=== PATIENT | female | born 1960 | race Caucasian/White ===

== ENCOUNTER → 2019-10-17 14:03 | Outpatient (CLI) | payer OTHER, SELFPAY ==
--- NOTE | 2019-10-17 | DI.RAD.S_ITS ---
PROCEDURE: XR SHOULDER RT MIN 2V INDICATIONS: RIGHT SHOULDER PAIN TECHNIQUE: 3 views of the shoulder were acquired. COMPARISON: None. FINDINGS: Bones: No fractures, however there is superior subluxation of the lateral clavicle relative to the acromion measuring one half shaft width. Possible AC joint space widening measuring 9 mm No suspicious bony lesions. Visualized ribs appear intact. Soft tissues: No suspicious soft tissue calcifications. IMPRESSION: Findings consistent with age-indeterminate AC separation, which could be confirmed with dedicated acromioclavicular radiographs with and without weights, and correlation to point tenderness No fracture Dictated by: Antwon Cervantes M.D. on 10/17/2019 at 14:39 Approved by: Antwon Cervantes M.D. on 10/17/2019 at 14:41
== END ==
PROVIDERS: Family Provider Family Medicine; PCP Family Medicine; Visit Provider Family Medicine
DX: M25.511 Pain in right shoulder (principal)
CPT/HCPCS: 73030

== ENCOUNTER 2019-12-21 19:50 | Emergency (ER) | payer OTHER, SELFPAY ==
[2019-12-21 19:55] VITALS: BP 149/89; PULSE 73; RESP 29; TEMP 36.7; O2SAT 73; BMI 27.6
--- NOTE | 2019-12-21 20:06 | DI.RAD.S_ITS ---
PROCEDURE: XR CHEST 1V INDICATIONS: chest pain TECHNIQUE: One view of the chest was acquired. COMPARISON: [facility], , CHEST 1 VIEW, 03/01/2011, 22:02. FINDINGS: Surgical changes and devices: None. Lungs and pleura: Lungs are clear. No pleural effusions or pneumothorax. Mediastinum: Mediastinal contours appear normal. Heart size is normal. Bones and chest wall: No suspicious bony lesions. Overlying soft tissues appear unremarkable. IMPRESSION: No acute process. Dictated by: Wilmar Prasad M.D. on 12/21/2019 at 20:55 Approved by: Wilmar Prasad M.D. on 12/21/2019 at 20:55
[2019-12-21 20:16] LABS: Add Manual Diff / Slide Review NO; Basophils Absolute Auto 100 /uL (0-100); Basophils Percent Auto 0.8 % (0-2); Eosinophils Absolute Auto 200 /uL (0-450); Eosinophils Percent Auto 3.2 % (2-4); Hematocrit 40.8 % (36-46); Hemoglobin 13.8 g/dL (12.0-16.0); Lymphocytes Absolute Auto 2700 /uL (1100-4500); Lymphocytes Percent Auto 40.9 % (25-40); Mean Corpuscular HGB Conc 33.9 % (30-36); Mean Corpuscular Hemoglobin 32.4 PG (26-34); Mean Corpuscular Volume 95.5 fL (80-100); Monocytes Absolute Auto 500 /uL (0-900); Monocytes Percent Auto 8.3 % (3-14); Neutrophils Absolute Auto 3100 /uL (1500-7000); Neutrophils Percent Auto 46.8 % (50-75); Platelet Count 188 X10^3/uL (150-400); Red Blood Cell Count 4.27 X10^6/uL (4.0-5.2); Red Cell Distribution Width 13.5 % (11.6-14.8); White Blood Cell Count 6.6 X10^3/uL (4.5-11.0)
[2019-12-21 20:18] LABS: Prothrombin Time 11.7 SECONDS (10.1-12.7)
[2019-12-21 20:20] LABS: PTT Partial Thromboplastin Tim 26 SECONDS (26.4-36.2)
[2019-12-21 20:25] LABS: Alanine Aminotransferase 52 IU/L (<35); Albumin 4.1 g/dL (3.5-5.0); Albumin Globulin Ratio 1.5 (1.0-2.8); Alkaline Phosphatase 44 U/L (38-126); Amylase 111 U/L (30-110); Aspartate Aminotransferase 80 IU/L (14-36); BUN Creatinine Ratio 31.4 (6-22); Bilirubin Total 0.4 mg/dL (0.2-1.3); Blood Urea Nitrogen 22 mg/dL (7-17); Calcium 9.2 mg/dL (8.4-10.2); Carbon Dioxide 21 mmol/L (22-32); Chloride 108 mmol/L (98-107); Creatine Kinase 67 U/L (30-135); Estimated Glomerular Filt Rate > 60.0 mL/min (>60); Globulin 2.8 g/dL (1.7-4.1); Glucose 102 mg/dL (70-100); HEMOLYSIS 25 (0-50); Lipase 142 U/L (23-300); Potassium 3.7 mmol/L (3.4-5.1); Sodium 140 mmol/L (137-145); Total Protein 6.9 g/dL (6.3-8.2)
[2019-12-21 20:30] VITALS: BP 129/78; PULSE 68; RESP 13; O2SAT 97
[2019-12-21 20:35] LABS: Troponin I < 0.012 ng/mL (0.01-0.034)
[2019-12-21 21:00] VITALS: BP 124/74; PULSE 70; RESP 15; O2SAT 95
--- NOTE | 2019-12-21 21:04 | ED_ITS ---
HPI - Chest Pain General Chief Complaint: Chest Pain Stated Complaint: chest pain Time Seen by Provider: 12/21/19 19:55 Source: patient Mode of arrival: Family Vehicle Limitations: no limitations History of Present Illness HPI narrative: 59-year-old female nonsmoker with history of gallbladder disease presents with a chief complaint of a sudden onset mid back and epigastric pain that started at about 8:00 p.m. tonight. She denies provocation or palliation and states it was most intense at its onset but is still probably a 5/10. It is worse when she moves and with palpation. She denies any vomiting or diarrhea but does feel little bit nauseated. She is not dizzy nor weak or lightheaded. She denies any shortness of breath or palpitations. MD complaint: chest pain Onset (ago): hour(s) Duration: constant and improved Onset: during rest Pain location: epigastric Severity: moderate Quality: sharp Pain radiation: back Relieving factors: movement Associated symptoms: nausea Treatments prior to arrival chest pain: none Related Data On Oral Contraceptives: No Previous Rx's Medication Instructions Recorded hydrocodone-acetaminophen 1 tab PO Q4-6H PRN #10 tab 12/22/19 ondansetron 4 mg PO TID-QID PRN #10 tab 12/22/19 Allergies Allergy/AdvReac Type Severity Reaction Status Date / Time amoxicillin [AMOXICILLIN] Allergy Unknown Verified 12/22/19 01:03 erythromycin base Allergy Unknown Verified 12/22/19 01:03 [ERYTHROMYCIN BASE] Review of Systems Constitutional Constitutional: Denies chills, Denies fatigue, Denies fever(s), Denies frequent falls, Denies lethargy and Denies weakness Eyes Eyes: Denies change in vision, Denies eye discharge, Denies irritation and Denies loss of vision ENT Ears, Nose, Mouth, and Throat: Denies change in voice, Denies dizziness, Denies neck pain, Denies sore throat and Denies throat swelling Cardiovascular Cardiovascular: Denies chest pain, Denies irregular heart rhythm, Denies lightheadedness, Denies palpitations, Denies dyspnea, Denies dyspnea on exertion and Denies orthopnea Respiratory Respiratory: Denies cough, Denies dyspnea, Denies dyspnea on exertion and Denies wheezing Gastrointestinal Gastrointestinal: Reports abdominal pain, Denies change in bowel habits, Denies diarrhea, Reports nausea and Denies vomiting Genitourinary Genitourinary: Denies hematuria, Denies flank pain, Denies urinary incontinence and Denies urinary urgency Musculoskeletal Musculoskeletal: Denies back pain, Denies muscle weakness, Denies neck pain, Denies numbness and Denies tingling Integumentary/Breasts Skin/Breast: Denies pruritus, Denies erythema, Denies rash and Denies wounds Neurologic Neurologic: Denies behavioral changes, Denies confusion, Denies dizziness, Denies frequent falls, Denies loss of vision, Denies numbness, Denies tingling and Denies weakness Psychiatric Psychiatric: Denies anxiety, Denies behavioral changes, Denies confusion, Denies depression, Denies homicidal ideation and Denies suicidal ideation Endocrine Endocrine: Denies fatigue, Denies flushing and Denies palpitations Hematologic/Lymphatic Hematologic/Lymphatic: Denies easy bruising Allergic/Immunologic Allergic/Immunologic: Denies urticaria, Denies throat swelling and Denies wheezing Patient History Surgical History History of third molar tooth extraction Status post delivery (05/30/85) Status post delivery (05/23/88) Status post delivery (09/23/89) Status post surgery (01/18/16) Social History Smoking Status: Never smoker Smoking Status: Never smoker alcohol intake frequency: a few times a week Substance Use Type: does not use Exam Narrative Exam Narrative: GENERAL: [59] year old patient appears stated age. Well- nourished, well-developed patient, in mild distress. HEAD: Atraumatic. Normocephalic. EYES: Pupils equal round and reactive. Extraocular motions intact. No scleral icterus. No injection or drainage. ENT: Nose without bleeding, purulent drainage. Throat without erythema, tonsillar hypertrophy or exudate. Airway patent. NECK: Trachea midline. Non tender CARDIOVASCULAR: Regular rate and rhythm without murmurs, gallops, or rubs. RESPIRATORY: Clear to auscultation. Breath sounds equal bilaterally. No wheezes, rales, or rhonchi. GASTROINTESTINAL: Abdomen soft, tender to palpation in the epigastric region , nondistended. EXTREMITIES: No edema or joint tenderness. BACK: Nontender without deformity or crepitance. No flank tenderness. NEURO: AOx3. SKIN: No rash or erythema of visible areas Initial Vital Signs Initial Vital Signs: Vital Signs Temperature 98.0 F 12/21/19 19:55 Pulse Rate 73 12/21/19 19:55 Respiratory Rate 29 H 12/21/19 19:55 Blood Pressure 149/89 H 12/21/19 19:55 Pulse Oximetry 73 L 12/21/19 19:55 Course Orders Ordered: ED Orders 12/21/19 19:55 EKG-12 Lead Routine EKG-12 Lead Stat 12/21/19 20:00 Amylase Stat Complete Blood Count AUTO DIFF Stat Comprehensive Metabolic Panel Stat D Dimer Stat Lipase Stat Partial Thromboplastin Time Stat Prothrombin Time INR Stat Troponin & CK Cardiac Panel Stat 12/21/19 20:06 XR chest 1V Stat 12/21/19 21:54 CT abdomen pelvis w con Stat Discontinued Medications Hydrocodone Bitart/Acetaminophen (Vicodin 5/325 Prepack) 1 bottle MISC SEEINSTR ONE Stop: 12/22/19 00:21 Last Admin: 12/22/19 00:56 Dose: 1 bottle Documented by: MUNDO Hydromorphone HCl (Dilaudid) 0.5 mg IV NOW ONE Stop: 12/21/19 23:45 Last Admin: 12/21/19 23:55 Dose: 0.5 mg Documented by: NASRAL Ondansetron HCl (Zofran Odt Prepack) 1 bottle MISC SEEINSTR ONE Stop: 12/22/19 00:23 Last Admin: 12/22/19 00:56 Dose: 1 bottle Documented by: MUNDO Vital Signs Vital signs: Vital Signs - 8 hr 12/21/19 19:55 12/21/19 20:30 12/21/19 21:00 Temperature 98.0 F Pulse Rate 73 68 70 Respiratory Rate 29 H 13 15 Blood Pressure 149/89 H Blood Pressure [Right Arm] 129/78 124/74 Pulse Oximetry 73 L 97 95 12/21/19 21:30 12/21/19 22:00 12/21/19 23:04 Temperature Pulse Rate 73 101 H 71 Respiratory Rate 21 16 19 Blood Pressure Blood Pressure [Right Arm] 132/68 139/74 125/73 Pulse Oximetry 96 97 97 12/22/19 00:14 12/22/19 00:55 12/22/19 01:04 Temperature Pulse Rate 77 60 71 Respiratory Rate 15 11 L 15 Blood Pressure 131/70 Blood Pressure [Right Arm] 122/62 131/70 Pulse Oximetry 96 93 96 MDM - Chest Pain Lab Data Result diagrams: 12/21/19 20:00 12/21/19 20:00 Labs: Lab Results 12/21/19 12/21/19 12/21/19 Range/Units 20:00 20:00 20:00 WBC 6.6 (4.5-11.0) X10^3/uL RBC 4.27 (4.0-5.2) X10^6/uL Hgb 13.8 (12.0-16.0) g/dL Hct 40.8 (36-46) % MCV 95.5 (80-100) fL MCH 32.4 (26-34) PG MCHC 33.9 (30-36) % RDW 13.5 (11.6-14.8) % Plt Count 188 (150-400) X10^3/uL Neut % (Auto) 46.8 L (50-75) % Lymph % (Auto) 40.9 H (25-40) % [place] % (Auto) 8.3 (3-14) % Eos % (Auto) 3.2 (2-4) % Baso % (Auto) 0.8 (0-2) % Neut # (Auto) 3100 (7757-6118) /uL Lymph # (Auto) 2700 (6847-9944) /uL [place] # (Auto) 500 (0-900) /uL Eos # (Auto) 200 (0-450) /uL Baso # (Auto) 100 (0-100) /uL PT 11.7 (10.1-12.7) SECONDS INR 1.0 (0.9-1.3) APTT 26 L (26.4-36.2) SECONDS D-Dimer (<230) ng/mL Sodium 140 (137-145) mmol/L Potassium 3.7 (3.4-5.1) mmol/L Chloride 108 H (98-107) mmol/L Carbon Dioxide 21 L (22-32) mmol/L BUN 22 H (7-17) mg/dL Creatinine 0.70 (0.52-1.04) mg/dL Estimated GFR > 60.0 (>60) mL/min BUN/Creatinine Ratio 31.4 H (6-22) Glucose 102 H (70-100) mg/dL Calcium 9.2 (8.4-10.2) mg/dL Total Bilirubin 0.4 (0.2-1.3) mg/dL AST 80 H (14-36) IU/L ALT 52 H (<35) IU/L Alkaline Phosphatase 44 (38-126) U/L Total Creatine Kinase 67 (30-135) U/L CK-MB (CK-2) TNP CK-MB (CK-2) Rel Index TNP Troponin I < 0.012 (0.01-0.034) ng/mL Total Protein 6.9 (6.3-8.2) g/dL Albumin 4.1 (3.5-5.0) g/dL Globulin 2.8 (1.7-4.1) g/dL Albumin/Globulin Ratio 1.5 (1.0-2.8) Amylase (30-110) U/L Lipase 142 (23-300) U/L 12/21/19 12/21/19 Range/Units 20:00 20:00 WBC (4.5-11.0) X10^3/uL RBC (4.0-5.2) X10^6/uL Hgb (12.0-16.0) g/dL Hct (36-46) % MCV (80-100) fL MCH (26-34) PG MCHC (30-36) % RDW (11.6-14.8) % Plt Count (150-400) X10^3/uL Neut % (Auto) (50-75) % Lymph % (Auto) (25-40) % [place] % (Auto) (3-14) % Eos % (Auto) (2-4) % Baso % (Auto) (0-2) % Neut # (Auto) (6456-7939) /uL Lymph # (Auto) (9080-3624) /uL [place] # (Auto) (0-900) /uL Eos # (Auto) (0-450) /uL Baso # (Auto) (0-100) /uL PT (10.1-12.7) SECONDS INR (0.9-1.3) APTT (26.4-36.2) SECONDS D-Dimer < 200 (<230) ng/mL Sodium (137-145) mmol/L Potassium (3.4-5.1) mmol/L Chloride (98-107) mmol/L Carbon Dioxide (22-32) mmol/L BUN (7-17) mg/dL Creatinine (0.52-1.04) mg/dL Estimated GFR (>60) mL/min BUN/Creatinine Ratio (6-22) Glucose (70-100) mg/dL Calcium (8.4-10.2) mg/dL Total Bilirubin (0.2-1.3) mg/dL AST (14-36) IU/L ALT (<35) IU/L Alkaline Phosphatase (38-126) U/L Total Creatine Kinase (30-135) U/L CK-MB (CK-2) CK-MB (CK-2) Rel Index Troponin I (0.01-0.034) ng/mL Total Protein (6.3-8.2) g/dL Albumin (3.5-5.0) g/dL Globulin (1.7-4.1) g/dL Albumin/Globulin Ratio (1.0-2.8) Amylase 111 H (30-110) U/L Lipase (23-300) U/L Imaging Data Chest x-ray: Radiologist's Impression: [address] [address] XRay Report Signed Patient: Ofelia Larkin [facility]#: [id number] : 2Acct:[id number] Age/Sex: 59 / FDate of Service: 12/21/19 Loc: ED Accession Number: [id number] Procedure: XR chest 1V Ordering Provider: Geronimo Abdul D.O. PROCEDURE: XR CHEST 1V INDICATIONS: chest pain TECHNIQUE: One view of the chest was acquired. COMPARISON: [facility], , CHEST 1 VIEW, 03/01/2011, 22:02. FINDINGS: Surgical changes and devices: None. Lungs and pleura: Lungs are clear. No pleural effusions or pneumothorax. Mediastinum: Mediastinal contours appear normal. Heart size is normal. Bones and chest wall: No suspicious bony lesions. Overlying soft tissues appear unremarkable. IMPRESSION: No acute process. Dictated by: Wilmar Prasad M.D. on 12/21/2019 at 20:55 Approved by: Wilmar Prasad M.D. on 12/21/2019 at 20:55 CT scan - abdomen/pelvis: Radiologist's Impression: Normal appendix, no diverticulitis or bowel obstruction large amount of stool MDM Narrative Medical decision making narrative: Multiple etiologies for patient's symptoms considered including: [Bowel obstruction versus pancreatitis versus colitis versus other] Patient's symptoms improved or duration of stay with above-stated therapies. Findings and discharge diagnosis discussed with patient/family followed by verbalization of understanding Return precautions discussed with patient/family whom verbalize understanding. Discharge Plan Departure Patient Disposition: Home Clinical Impression: Abdominal pain, acute, epigastric Discharge Date/Time: 12/22/19 01:06 Instructions: DI for Abdominal Pain-Adult Activity Restrictions/Additional Instructions: *You have been diagnosed with [epigastric pain ] *What to do: *Take medications as directed *Follow up with your primary care provider in 2-3 days, call for an appointment. Let them know you were seen in the Emergency Department and that we ask that you be seen in follow up *Return to ER if you should have any new, worsening or concerning symptoms 1. Drink plenty of fluids with frequent small sips. 2. For the next 24 hours a clear liquid diet is advised. After that please employ a brat diet which would include bananas, rice, apples, toast. 3. Please take medications as directed. 4. Please follow-up with your doctor in the next 1-2 days. Call the office for an appointment. 5. Please return to the emergency Department for any worsening or persistent symptoms, such as increasing pain or fever. Prescriptions: New hydrocodone-acetaminophen 5-325 mg tablet 1 tab PO Q4-6H PRN (Reason: pain) Qty: 10 RF: 0 ondansetron 4 mg tablet,disintegrating 4 mg PO TID-QID PRN (Reason: nausea and vomiting) Qty: 10 RF: 0 Referrals: Abida Moctezuma MD [Primary Care Provider] -
[2019-12-21 21:18] LABS: D Dimer < 200 ng/mL (<230)
[2019-12-21 21:30] VITALS: BP 132/68; PULSE 73; RESP 21; O2SAT 96
--- NOTE | 2019-12-21 21:54 | DI.CT.S_ITS ---
PROCEDURE: CT ABDOMEN PELVIS W CON INDICATIONS: severe abdominal pain TECHNIQUE: After the administration of intravenous contrast, 5 mm thick sections acquired from the diaphragm to the symphysis. 5 mm coronal and sagittal reformats were acquired. For radiation dose reduction, the following was used: automated exposure control, adjustment of mA and/or kV according to patient size. COMPARISON: None. FINDINGS: Image quality: Excellent. ABDOMEN: Lung bases: Lung bases are clear. Heart size is normal. Solid organs: Liver is normal in size and enhancement. Gallbladder is surgically absent. Biliary system is non dilated. Pancreas enhances normally. Spleen is normal in size and enhancement. No adrenal nodules. Kidneys demonstrate normal size and enhancement, without hydronephrosis. Peritoneum and bowel: Bowel loops demonstrate normal wall thickness and caliber. No free fluid or air. Moderately large fecal debris. Scattered sigmoid diverticuli with no evidence of diverticulitis. Normal appendix. Nodes and vessels: No retroperitoneal or mesenteric adenopathy by size criteria. Aorta and inferior vena cava are normal in size. Miscellaneous: No ventral hernias. PELVIS: Genitourinary: Bladder wall thickness is normal. Miscellaneous: No inguinal hernias or adenopathy. Bones: No suspicious bony lesions. No vertebral body compression fractures. IMPRESSION: 1. Remote cholecystectomy. 2. Normal appendix. 3. Moderately large fecal debris. 4. Scattered sigmoid diverticuli 5. No evidence acute abdominal process. Comment: Final report is concordant with preliminary interpretation provided by [facility]. Dictated by: David Yin M.D. on 12/22/2019 at 7:54 Approved by: David Yin M.D. on 12/22/2019 at 7:57
[2019-12-21 22:00] VITALS: BP 139/74; PULSE 101; RESP 16; O2SAT 97
[2019-12-21 23:04] VITALS: BP 125/73; PULSE 71; RESP 19; O2SAT 97
[2019-12-21] MEDS: HYDROMORPHONE 0.5 MG INJ IV (23:55)
[2019-12-22 00:14] VITALS: BP 122/62; PULSE 77; RESP 15; O2SAT 96
[2019-12-22 00:55] VITALS: BP 131/70; PULSE 60; RESP 11; O2SAT 93
[2019-12-22] MEDS: ONDANSETRON 4 MG ODT PREPACK 1 BOTTLE MISC (00:56)
[2019-12-22] MEDS: HYDROCODONE/ACET 5/325 PREPACK 1 BOTTLE MISC (00:56)
[2019-12-22 01:04] VITALS: BP 131/70; PULSE 71; RESP 15; O2SAT 96
== END 2019-12-22 01:06 | disposition home or self-care (01) ==
PROVIDERS: Emergency Provider Emergency Medicine; Family Provider Family Medicine; PCP Family Medicine
DX: R10.13 Epigastric pain (principal); R07.89 Other chest pain
CPT/HCPCS: 36415; 71045; 74177; 80053; 82150; 82550; 83690; 84484; 85025; 85379; 85610; 85730; 93005; 96374; 99284; 99285; J1170; Q9967

== ENCOUNTER 2020-01-04 07:30 | Outpatient (RCR) | payer OTHER, SELFPAY ==
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
--- NOTE | 2019-11-21 16:05 | PT.OPPOC ---
Physical, Occupational & Speech Therapy At [facility] Current Diagnoses Other synovitis and tenosynovitis, unspecified shoulder (11/21/19) Impingement syndrome of right shoulder (11/21/19) Visit Care Team Role Provider Type Abida Moctezuma MD Attending Provider Physician Family Provider Primary Care Provider Specialty: Family Practice Address: [address] [place] [address], [facility] Email: [email or web address] Plan Of Care PT-OP-T Assessment and Plan Start: 11/21/19 12:02 Freq: Status: Active Protocol: Document 11/21/19 09:00 EG (Rec: 11/21/19 13:31 EG [email or web address]) Physical Therapy Assessment Rehab Potential Rehabilitation Potential Excellent Evaluation Complexity Number of Personal Factors/Comorbidities 1-2 Number of Body Systems Impaired 4 or More Clinical Presentation at Evaluation Stable Impairments Impairments Coordination,Functional Activities,Functional Mobility ,Pain,Posture,ROM,Soft Tissue Mobility,Strength Goals 3 Impairment Lifting overhead Short Term Goal (STG) Patient will lift 10 pounds overhead with both arms using correct form and scapular movement with 2/10 pain in 2-4 weeks. STG Duration 2-4 weeks Penitentiary Goal (LTG) Patient will lift 10# overhead using only R arm with correct form and scapular movement with <1/10 pain in 4-6 weeks. LTG Duration 4-6 weeks 2 Impairment p! with AROM abduction Short Term Goal (STG) Patient will have <2/10 pain off of pain medication moving in to R shoulder abduction when performing activities at home in 2-4 weeks. STG Duration 2-4 weeks Mobile Security Architect Goal (LTG) Patient will have 0/10 pain with R shoulder abduction off of pain medication when performing activities at home and at work in 4-6 weeks. LTG Duration 4-6 weeks 1 Impairment p! with waking Short Term Goal (STG) Patient will sleep through the night and have < 2/10 p! in R shoulder upon waking in the morning in 2-4 weeks. STG Duration 2-4 weeks Penitentiary Goal (LTG) Patient will sleep through the night and have 0/10 p! in R shoulder upon waking in the morning in 4-6 weeks. LTG Duration 4-6 weeks. Assessment Summary Assessment Patient presents with primary impingement of the R shoulder resulting in R biceps tendonitis likely caused by overuse and poor mechanics when performing overhead motions. Patient will benefit from postural training to decrease anterior tilt and protraction of scapula, increasing neuromuscular reeducation of scapulothoracic rhythm with overhead motions, education on postural positions during various ADL's including sleeping position, as well as strengthening of rotator cuff muscles in order to decrease R shoulder impingement when performing overhead motions at home. Physical Therapy Plan Frequency and Duration Frequency of Treatment 1x/Week Duration of Treatment 6 weeks Plan of Care Start Date 11/21/19 Plan of Care End Date 01/02/20 Therapeutic Interventions Therapeutic Interventions Coordination Training,Home Exercise Program,Joint Mobilizations,Manual Therapy, Neuromuscular Re-education, Self-Care/Home Management,Soft Tissue Mobilization,Taping, Therapeutic Activities, Therapeutic Exercises Modalities Cold Pack/Ice Massage,Electric Stimulation,Hot Packs Next Visit Focus/Plan Next Note Type Treatment Note Next Visit Plan Assess how HEP is going as well as sleeping position. Introduce anterior chest stretching, increased rotator cuff musculature strengthening , scapular mobilizations. Update HEP as needed. Plan of Care Dates Plan of Care Start Date 11/21/19 Plan of Care End Date 01/02/20 Electronically Signed by: Susan Weldon, PT 11/21/19 [id number] Please Sign and Return: I have reviewed this Plan of Care and certify that the skilled therapy services above are required to meet the patient?s needs. Physician Signature Date Printed Name and Credentials Clinical Instructor Signature Printed Name and Credentials
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
--- NOTE | 2020-01-04 12:02 | PT.OPPOC ---
Physical, Occupational & Speech Therapy At [facility] Current Diagnoses Other synovitis and tenosynovitis, unspecified shoulder (01/04/20) Impingement syndrome of right shoulder (01/04/20) Visit Care Team Role Provider Type Abida Moctezuma MD Attending Provider Physician Family Provider Primary Care Provider Specialty: Family Practice Address: [address] [place] [address], [facility] Email: [email or web address] Plan Of Care PT-OP-T Assessment and Plan Start: 11/21/19 12:02 Freq: Status: Active Protocol: Document 01/04/20 07:30 EG (Rec: 01/04/20 16:39 EG [id number]) Physical Therapy Assessment Goals 3 Impairment Lifting overhead Short Term Goal (STG) Patient will lift 10 pounds overhead with both arms using correct form and scapular movement with 2/10 pain in 2-4 weeks. STG Duration MET Senior Living Goal (LTG) Patient will lift 10# overhead using only R arm with correct form and scapular movement with <1/10 pain in 4-6 weeks. 01/04/2020: Improved; able to lift 5# overhead with +2 increase in pain LTG Duration 4-6 weeks 2 Impairment p! with AROM abduction Short Term Goal (STG) Patient will have <2/10 pain off of pain medication moving in to R shoulder abduction when performing activities at home in 2-4 weeks. STG Duration MET Spot Man Goal (LTG) Patient will have 0/10 pain with R shoulder abduction off of pain medication when performing activities at home and at work in 4-6 weeks. 01/04/2020: patient still on pain medication. No pain or catch with AROM abduction LTG Duration 4-6 weeks 1 Impairment p! with waking Short Term Goal (STG) Patient will sleep through the night and have < 2/10 p! in R shoulder upon waking in the morning in 2-4 weeks. STG Duration MET Senior Living Goal (LTG) Patient will sleep through the night and have 0/10 p! in R shoulder upon waking in the morning in 4-6 weeks. LTG Duration MET Progress Towards Goals Progress Towards Goals Goals Met Progress Comments Most functional goals met and ready for discharge. Updated comments above. Assessment Summary Assessment Patient tolerated treatment well today and was educated on continual HEP to do while at home. Discharge was today and patient's exercises for home looked good and understanding of continual strengthening was evident. 80% of patient's goals have been met and she is ready to discharge to an independent home program. patient was provided theraband to use to continue with exercises at home. Physical Therapy Plan Frequency and Duration Frequency of Treatment 1x/Week Duration of Treatment 1 week Plan of Care Start Date 01/02/20 Plan of Care End Date 01/09/20 Therapeutic Interventions Therapeutic Interventions Coordination Training,Home Exercise Program,Joint Mobilizations,Manual Therapy, Neuromuscular Re-education, Self-Care/Home Management,Soft Tissue Mobilization,Taping, Therapeutic Activities, Therapeutic Exercises Modalities Cold Pack/Ice Massage,Electric Stimulation,Hot Packs Discharge Physical Therapy Discharge Reasons Goals Met Discharge Comments Patient has been discharged home with independent HEP Plan of Care Dates Plan of Care Start Date 01/02/20 Plan of Care End Date 01/09/20 ISusan DPT, supervised all treatment performed by, and agreed with the plan of care, as performed by Rocio Aranda, DINA. Electronically Signed by: Susan Weldon, PT 01/05/20 1107 Please Sign and Return: I have reviewed this Plan of Care and certify that the skilled therapy services above are required to meet the patient?s needs. Physician Signature Date Printed Name and Credentials Clinical Instructor Signature Printed Name and Credentials
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
== END 2020-01-10 17:36 | disposition home or self-care (01) ==
LOC: PHYS 07:30
PROVIDERS: Family Provider Family Medicine; PCP Family Medicine; Visit Provider Family Medicine
DX: M65.819 Other synovitis and tenosynovitis, unspecified shoulder (principal); M75.41 Impingement syndrome of right shoulder
CPT/HCPCS: 97110; 97140; 97161; 97535

== ENCOUNTER → 2022-04-14 07:48 | Outpatient (CLI) | payer OTHER, SELFPAY ==
[2022-04-14 10:45] LABS: COVID19 - ADMIT (NP swab/PCR) Negative (Negative)
== END ==
PROVIDERS: Family Provider Family Medicine; PCP Family Medicine; Referring Provider Student in an Organized Health Care Education/Training Program; Visit Provider Student in an Organized Health Care Education/Training Program
DX: Z20.822 Contact with and (suspected) exposure to COVID-19 (principal)
CPT/HCPCS: C9803; U0003; U0005

== ENCOUNTER 2022-04-15 12:47 | Day surgery (SDC) | payer OTHER, SELFPAY ==
--- NOTE | 2022-04-15 | PATH_ITS ---
[facility] Accession Number: [id number] . 01 Material submitted: . sigmoid colon - SIGMOID COLON POLYP . 01 Clinical history: . SCREENING COLONOSCOPY 6MM . . 01 Diagnosis: Sigmoid Colon, Polyp, Biopsy: Tubular adenoma. MRV 04/17/2022 2204 Local . 01 Electronically signed: . Marzena Brambila MD, Pathologist NPI- [id number] . 01 Gross description: . SIGMOID COLON POLYP: Received in formalin is 1 fragment(s) of patel, soft tissue measuring 0.2 x 0.2 x 0.1 cm to 0.1 x 0.1 x 0.1 cm submitted entirely in 1 cassette(s) /CPE 04/16/2022 0825 Local . 01 Pathologist provided ICD-10: D12.5 . 01 CPT . 325065 Specimen Comment: A courtesy copy of this report has been sent to [phone] Performed at: 01 [facility] [address] [place] [address] Suite [facility], [place], [place] [id number] MD Zachery Anaya MD Phone: [phone]
--- NOTE | 2022-04-15 12:24 | P.HP_ITS ---
History of Present Illness History of Present Illness Date Patient Seen: 04/15/22 Chief complaint: SCREENING COLONOSCOPY Narrative: 61 year old female comes in today for consideration of a screening colonoscopy. Last colonoscopy in 2012 revealed a tubular adenoma at 30 cm. There have been no lower GI symptoms suggesting disease such as change in bowel habits, bleeding, abdominal pain or anemia. There's been no family history of colon cancer or colon polyps. Overall health issues have been stable, including no major cardiac events for at least 6 weeks. PCP: Dr. 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 Patient History Surgical History History of third molar tooth extraction Status post delivery (05/30/85) Status post delivery (05/23/88) Status post delivery (09/23/89) Status post surgery (01/18/16) Family & Social History Tobacco & Substance use: Smoking Status Never smoker alcohol intake frequency a few times a week Substance Use Type does not use Meds Home Medications and Allergies Allergies Allergy/AdvReac Type Severity Reaction Status Date / Time amoxicillin [AMOXICILLIN] Allergy Unknown Verified 12/22/19 01:03 erythromycin base Allergy Unknown Verified 12/22/19 01:03 [ERYTHROMYCIN BASE] Review of Systems Review of Systems Narrative: All remaining ROS were reviewed and negative except as addressed. Exam Narrative Exam Narrative: GENERAL: Alert and oriented, appearing stated age and in no acute distress. HEENT: Head normocephalic/atraumatic. Extraocular movements intact. LUNGS: Clear to ausculation bilaterally, no wheezes, rhonchi or rales. CV: Normal S1 and S2 with regular rate and rhythm, no audible murmurs, rubs or gallops. ABDOMEN: Soft, non-tender, non-distended, no organomegaly. Positive bowel sounds. EXTREMITIES: No clubbing, cyanosis, or edema. NEURO: Cranial nerves II through XII grossly intact, no focal deficits. PSYCH: Alert and oriented x 3. SKIN: No concerning lesions. Assessment & Plan Assessment & Plan narrative: 1. History of colon polyps 2. Screening for colon cancer Plan for colonoscopy. The nature and character of the procedure as well as anticipated results were discussed. The possibility of not completing the procedure was also discussed. Possible complications including aspiration pneumonia, bleeding, perforation and reaction to medications either for sedation or preparation and missed lesions were discussed. Questions were answered and proceeding to the colonoscopy was elected. Informed consent signed. I sincerely appreciate the referral allowing me to participate in this patient's care. Please contact me with any questions or concerns.
--- NOTE | 2022-04-15 12:28 | PM.OP.COLON ---
Operative Date/Time/Diagnoses Date of procedure: 04/15/22 Procedure Notes SCOAP/Timeout: 1:51 p.m. Procedure in detail: ENDOSCOPIST: Yuridia Almonte MD Sedation RN: Jenifer Sarah RN Sedation start time: 1:52 p.m. Sedation end time: 2:17 p.m. PROCEDURE: Colonoscopy with cold biopsy INDICATIONS: 1. History of colon polyps 2. Screening for colon cancer MEDICATION: Levsin 0.125 mg sublingual, incremental doses of Versed and fentanyl until appropriate level sedation achieved. ASA CLASS: 2 CECAL WITHDRAWAL TIME: 10 minutes COMPLICATIONS: None. EXTENT OF PROCEDURE: Cecum. QUALITY OF PREP: Good with portions of liquid stool. PROCEDURE: Prior to insertion of the colonoscope, a digital rectal examination was accomplished with circumferential palpation of the distal rectal mucosa without significant findings being noted. The high-definition pediatric colonoscope was passed into the rectum in the usual fashion and advanced over to the cecum without difficulty. The ileocecal valve, appendiceal stoma, and medial wall all could be inspected and no abnormalities were seen. ASCENDING COLON: As the colonoscope was withdrawn, care was taken to expose and inspect the haustral folds and no abnormalities were seen. HEPATIC FLEXURE: Normal, no polyps, diverticula or other abnormalities. TRANSVERSE COLON: Normal, no polyps, diverticula or other abnormalities. DESCENDING COLON: Normal, no polyps, diverticula or other abnormalities. SIGMOID COLON: A 6 mm polyp was seen and removed with cold biopsy forceps, excellent hemostasis. Also, minor diverticulosis and no other abnormalities. RECTUM: Normal. J maneuver was produced. There was no significant perianal disease. The J maneuver was broken. The remainder of the rectum was inspected and there was no external hemorrhoid disease. The scope was withdrawn. IMPRESSION: 1. Sigmoid polyp x1, 6 mm, removed with cold biopsy forceps 2. Diverticulosis, mild, sigmoid PLAN: 1. Follow-up in clinic status post pathology results. The possibility of a missed lesion including a malignancy has been discussed with the patient previously. Potential alarm symptoms have been discussed and should be reported immediately.
[2022-04-15 13:09] VITALS: BP 122/84; PULSE 77; RESP 16; TEMP 37.2; O2SAT 99; BMI 25.3
[2022-04-15] MEDS: LACTATED RINGERS 1,000 ML 200 ML IV (13:30)
[2022-04-15 13:50] VITALS: BP 143/85; PULSE 64; RESP 16; TEMP 36.8; O2SAT 100
[2022-04-15] MEDS: fentaNYL 250 MCG/5 ML INJ 100 MCG IV (14:11)
[2022-04-15] MEDS: ONDANSETRON 4 MG/2 ML INJ IV (14:12)
[2022-04-15] MEDS: MIDAZOLAM 5 MG/5 ML VIAL IV (14:12)
[2022-04-15 14:22] VITALS: BP 118/76; PULSE 76; RESP 12; TEMP 36.3; O2SAT 99
[2022-04-15 14:27] VITALS: BP 118/73; PULSE 69; RESP 16; O2SAT 99
[2022-04-15 14:32] VITALS: BP 129/78; PULSE 68; RESP 16; O2SAT 100
[2022-04-15 14:37] VITALS: BP 134/78; PULSE 68; RESP 18; TEMP 36.1; O2SAT 99
--- NOTE | 2022-04-15 16:14 | SUR.PHASEII ---
3290 Patient allowed to sleep while waiting for to arrive. States that she feels well and enjoyed the rest. Tolerated PO well, no questions/concerns.
== END 2022-04-15 16:01 | disposition home or self-care (01) ==
PROVIDERS: Family Provider Family Medicine; PCP Family Medicine; Referring Provider Student in an Organized Health Care Education/Training Program; Visit Provider Student in an Organized Health Care Education/Training Program
PROC: 0DJD8ZZ Inspection of Lower Intestinal Tract, Via Natural or Artificial Opening Endoscopic (ICD-10-PCS; CPT 45378; principal; 2022-04-15 13:45)
DX: Z12.11 Encounter for screening for malignant neoplasm of colon (principal); Z86.010 Personal history of colon polyps; K57.30 Diverticulosis of large intestine without perforation or abscess without bleeding; D12.5 Benign neoplasm of sigmoid colon
CPT/HCPCS: 45380; J2250; J2405; J3010

== ENCOUNTER → 2022-07-22 09:12 | Outpatient (CLI) | payer OTHER, SELFPAY ==
--- NOTE | 2022-07-22 | DI.MG.S_ITS ---
BILATERAL DIGITAL SCREENING MAMMOGRAM 3D/2D WITH CAD: 07/22/2022 CLINICAL: Routine screening. Comparison is made to exams dated: 11/19/2015 mammogram and 01/25/2013 mammogram - [facility]. There are scattered areas of fibroglandular density in both breasts (category b / 25%-50% glandular tissue). Current study was also evaluated with a Computer Aided Detection (CAD) system. No significant masses, calcifications, or other findings are seen in either breast. There has been no significant interval change. IMPRESSION: NEGATIVE There is no mammographic evidence of malignancy. A 1 year screening mammogram is recommended. Based on the Tyrer Cuzick model (a risk assessment model) the patient's lifetime risk is 7.0% and her 10 year risk is 2.7%. According to the ACR, ACS, and NCCN guidelines, an annual breast MRI exam along with mammogram is recommended if the patient's lifetime risk is 20% or greater. This exam was interpreted at Station ID: [id number]. NOTE: For mammograms, a report in lay terms will be sent to the patient. Approximately 15% of breast malignancies will not be visualized mammographically. In the management of a palpable breast mass, a negative mammogram must not discourage biopsy of a clinically suspicious lesion. Electronically Signed By: Sonido castillo/manuel:07/22/2022 12:33:39 letter sent: Normal Exam ACR BI-RADS Category 1: Negative [id number]
== END ==
PROVIDERS: Family Provider Family Medicine; PCP Family Medicine; Referring Provider Family Medicine; Visit Provider Family Medicine
DX: M81.0 Age-related osteoporosis without current pathological fracture (principal); Z12.31 Encounter for screening mammogram for malignant neoplasm of breast
CPT/HCPCS: 77063; 77067; 77080

== ENCOUNTER → 2023-09-02 10:03 | Outpatient (CLI) | payer OTHER, SELFPAY ==
--- NOTE | 2023-09-02 | DI.MG.S_ITS ---
BILATERAL DIGITAL SCREENING MAMMOGRAM 3D/2D WITH CAD: 09/02/2023 CLINICAL: Routine screening. Comparison is made to exams dated: 07/22/2022 mammogram, 11/19/2015 mammogram, and 01/25/2013 mammogram - [facility]. There are scattered areas of fibroglandular density in both breasts (category b / 25%-50% glandular tissue). Current study was also evaluated with a Computer Aided Detection (CAD) system. No significant masses, calcifications, or other findings are seen in either breast. There has been no significant interval change. IMPRESSION: NEGATIVE There is no mammographic evidence of malignancy. A 1 year screening mammogram is recommended. Based on the Tyrer Cuzick model (a risk assessment model) the patient's lifetime risk is 6.7% and her 10 year risk is 2.8%. According to the ACR, ACS, and NCCN guidelines, an annual breast MRI exam along with mammogram is recommended if the patient's lifetime risk is 20% or greater. This exam was interpreted at Station ID: [id number]. NOTE: For mammograms, a report in lay terms will be sent to the patient. Approximately 15% of breast malignancies will not be visualized mammographically. In the management of a palpable breast mass, a negative mammogram must not discourage biopsy of a clinically suspicious lesion. Electronically Signed By: Markus lord/manuel:09/02/2023 17:38:56 letter sent: Normal Exam ACR BI-RADS Category 1: Negative [id number]
--- NOTE | 2023-09-02 | DI.RAD.S_ITS ---
Bone Density Report Name: BROOKE GOLDEN Age: 63 Sex: Female Ethnicity: White Date of : 1960 Indication: postmenopausal osteoporosis; Referring Provider: MELI VICENTE Study: Bone densitometry was performed. Exam Date: September 02, 2023 Accession number: [id number] Bone Density: Region BMD T-score Z-score Classification AP Spine(L1-L4) 0.692 -3.2 -1.7 Osteoporosis Femoral Neck (Left) 0.589 -2.3 -1.0 Osteopenia Total Hip (Left) 0.770 -1.4 -0.4 Osteopenia Femoral Neck (Right) 0.601 -2.2 -0.9 Osteopenia Total Hip (Right) 0.829 -0.9 0.1 Normal Total Hip Mean 0.799 -1.2 -0.2 Osteopenia World Health Organization criteria for BMD impression classify patients as: Normal (T-score at or above -1.0), Osteopenia (T-score between -1.0 and -2.5), or Osteoporosis (T-score at or below -2.5). 10-year Fracture Risk: FRAX not reported because: Some T-score for Spine Total or Hip Total or Femoral Neck at or below -2.5 Previous Exams: -- Region Exam Age BMD T-score BMD Change BMD Change Date g/cm2 vs Baseline vs Previous -- AP Spine (L1-L4) 09/02/2023 63 0.692 -3.2 -0.198 (-22.3%)# 0.005 (0.8%) 07/22/2022 61 0.687 -3.3 -0.203 (-22.9%)# -0.064 (-8.5%)# 01/25/2013 52 0.750 -2.7 -0.140 (-15.7%)* -0.140 (-15.7%)* 12/01/2008 48 0.890 Total Hip(Left) 09/02/2023 63 0.770 -1.4 -0.120 (-13.5%)# -0.017 (-2.2%) 07/22/2022 61 0.787 -1.3 -0.103 (-11.6%)# -0.047 (-5.6%)# 01/25/2013 52 0.834 -0.9 -0.056 (-6.3%)* -0.056 (-6.3%)* 12/01/2008 48 0.890 Total Hip(Right) 09/02/2023 63 0.829 -0.9 -0.043 (-4.9%)# 0.013 (1.6%) 07/22/2022 61 0.816 -1.0 -0.057 (-6.5%)# 0.000 (0.0%)# 01/25/2013 52 0.816 -1.0 -0.057 (-6.5%)* -0.057 (-6.5%)* 12/01/2008 48 0.872 -- *Denotes significance at 95% confidence level, LSC for AP Spine = 0.022 g/cm2, LSC for Total Hip = 0.027 g/cm2 # Denotes dissimilar scan types or analysis methods Impression: The patient has osteoporosis, based on the Total Spine T-score. No significant bone loss was observed. Discussion: INCREASED RISK OF FRACTURE. BONE DENSITY IS UNDESIRABLY LOW AT ONE OR MORE SKELETAL SITES, CONSISTENT WITH POSTMENOPAUSAL OSTEOPOROSIS. This patient's lowest T-score meets the World Health Organization's (WHO) criteria for osteoporosis at one or more sites (T-score -2.5 or below). In untreated patients, the risk of osteoporotic fracture increases approximately two-fold for each 1.0 SD decrease in T-score. Low bone density is not the only risk factor for fracture; also consider factors such as patient's age, frailty or poor health, risk of falling, risk of injury, previous osteoporotic fracture, family history of osteoporosis, cigarette smoking, low body weight, etc. Not everyone with low bone mineral density has osteoporosis; osteomalacia and other metabolic bone disorders should also be considered. Patients who have osteoporosis should be evaluated for specific diseases and conditions (secondary causes) that may cause or contribute to bone loss. The [employer] Endocrinologists (AACE) and National Osteoporosis Foundation (NOF) recommend pharmacologic intervention for all postmenopausal women whose T-score is in this range. The patient should follow a healthful lifestyle (good nutrition with adequate calcium and vitamin D, and appropriate weight-bearing exercise). Follow-Up: Consider a repeat BMD and Vertebral Fracture Assessment (VFA) exam in 2 years or sooner if medically necessary, to reassess this patient's status. Reported by: PUJA TORRE MD on 09/02/2023 10:35:00 AM.
== END ==
PROVIDERS: Family Provider Family Medicine; PCP Family Medicine; Referring Provider Family Medicine; Visit Provider Family Medicine
DX: Z12.31 Encounter for screening mammogram for malignant neoplasm of breast (principal); M81.8 Other osteoporosis without current pathological fracture
CPT/HCPCS: 77063; 77067; 77080

== ENCOUNTER 2024-09-20 21:21 | Emergency (ER) | payer OTHER, SELFPAY ==
[2024-09-20 21:29] VITALS: BP 129/59; PULSE 67; RESP 16; TEMP 36.4; O2SAT 100; BMI 25.9
--- NOTE | 2024-09-20 21:39 | EKG_ITS ---
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
--- NOTE | 2024-09-20 21:39 | DI.RAD.S_ITS ---
PROCEDURE: XR CHEST 1V INDICATIONS: chest pain TECHNIQUE: One view of the chest was acquired. COMPARISON: [facility], CR, XR CHEST 1V, 12/21/2019, 20:33. FINDINGS: Surgical changes and devices: None. Lungs and pleura: Lungs are clear. No pleural effusions or pneumothorax. Mediastinum: Mediastinal contours appear normal. Heart size is normal. Bones and chest wall: No suspicious bony lesions. Overlying soft tissues appear unremarkable. IMPRESSION: No acute cardiopulmonary abnormality is seen. Approved by: Sonido Menjivar M.D. on 09/20/2024 at 21:54
[2024-09-20 22:05] LABS: Add Manual Diff / Slide Review NO; Basophils Absolute Auto 100 /uL (0-100); Eosinophils Absolute Auto 200 /uL (0-450); Eosinophils Percent Auto 2.9 % (2-4); Hematocrit 39.1 % (36-46); Hemoglobin 13.3 g/dL (12.0-16.0); Lymphocytes Absolute Auto 2000 /uL (1100-4500); Lymphocytes Percent Auto 37.1 % (25-40); Mean Corpuscular HGB Conc 34.2 % (30-36); Mean Corpuscular Hemoglobin 32.9 PG (26-34); Mean Corpuscular Volume 96.2 fL (80-100); Monocytes Absolute Auto 400 /uL (0-900); Monocytes Percent Auto 7.7 % (3-14); Neutrophils Absolute Auto 2800 /uL (1500-7000); Neutrophils Percent Auto 51.3 % (50-75); Platelet Count 186 X10^3/uL (150-400); Red Blood Cell Count 4.06 X10^6/uL (4.0-5.2); White Blood Cell Count 5.5 X10^3/uL (4.5-11.0)
[2024-09-20 22:09] LABS: INR 1.1 (0.9-1.3)
[2024-09-20 22:12] LABS: PTT Partial Thromboplastin Tim 31 SECONDS (25.1-36.5)
[2024-09-20 22:13] LABS: Alanine Aminotransferase 69 IU/L (<35); Albumin 3.5 g/dL (3.5-5.0); Albumin Globulin Ratio 1.2 (1.0-2.8); Alkaline Phosphatase 41 U/L (38-126); Aspartate Aminotransferase 141 IU/L (14-36); BUN Creatinine Ratio 24.1 (6-22); Bilirubin Total 0.5 mg/dL (0.2-1.3); Blood Urea Nitrogen 19 mg/dL (7-17); Calcium 8.9 mg/dL (8.4-10.2); Carbon Dioxide 16 mmol/L (22-32); Chloride 110 mmol/L (98-107); Creatine Kinase 66 U/L (30-135); Estimated Glomerular Filt Rate > 60 mL/min (>60); Globulin 2.9 g/dL (1.7-4.1); Glucose 138 mg/dL (80-110); HEMOLYSIS < 15 (0-50); Lipase 80 U/L (23-300); Potassium 3.6 mmol/L (3.4-5.1); Sodium 137 mmol/L (137-145); Total Protein 6.4 g/dL (6.3-8.2)
[2024-09-20 22:21] VITALS: PULSE 63; RESP 24; O2SAT 98
[2024-09-20 22:22] VITALS: BP 120/77; PULSE 62; RESP 25; O2SAT 98
[2024-09-20 22:25] LABS: NT-proBNP (BNP-Adult 18+) 98 pg/mL (<125); Troponin I < 0.012 ng/mL (0.01-0.034)
[2024-09-20] MEDS: ASPIRIN 81 MG CHEW TAB 324 MG PO (22:29)
[2024-09-20 22:30] VITALS: BP 107/56; PULSE 64; RESP 23; O2SAT 97
[2024-09-20 23:00] VITALS: BP 103/58; PULSE 62; RESP 13; O2SAT 94
--- NOTE | 2024-09-20 23:17 | ED.CHESTPAIN ---
HPI - Chest Pain General Chief Complaint: Chest Pain Stated Complaint: sob, chest pains, nausea Time Seen by Provider: 09/20/24 22:23 Source: patient and family Mode of arrival: Ambulatory History of Present Illness HPI narrative: 64-year-old female with no reported past medical history presents by private vehicle from home for thoracic back pain and central chest pain. Approximately 2 hours prior to arrival patient came home from work and noticed her symptoms. She states that ?it felt my back had to pop. She states that she had her crack her back and that initially seemed to improve her back pain, but over time the pain returned, and along with the chest pain she began to become concerned that this may be something with her heart. She states that she has an appointment with her primary care doctor tomorrow but wants to make sure that she is not having a heart attack. Denies personal or family history of heart disease. Related Data Allergies Allergy/AdvReac Type Severity Reaction Status Date / Time amoxicillin [AMOXICILLIN] Allergy Unknown Verified 09/20/24 21:36 erythromycin base Allergy Unknown Verified 09/20/24 21:36 [ERYTHROMYCIN BASE] Patient History Surgical History Status post surgery (01/18/16) Status post delivery (09/23/89) Status post delivery (05/23/88) Status post delivery (05/30/85) History of third molar tooth extraction Social History household members: spouse Smoking Status: Never smoker alcohol intake: current Smoking Status: Never smoker alcohol intake frequency: a few times a week Substance Use Type: does not use Exam Initial Vital Signs Initial Vital Signs: Vital Signs Temperature 97.5 F L 09/20/24 21:29 Pulse Rate 67 09/20/24 21:29 Respiratory Rate 16 09/20/24 21:29 Blood Pressure 129/59 L 09/20/24 21:29 Pulse Oximetry 100 09/20/24 21:29 Oxygen Delivery Method Room Air 09/20/24 21:29 Const: Awake, alert, no acute distress, nontoxic appearing Cardiac: regular rate, regular rhythm, equal radial pulses bilaterally RESP: unlabored, clear bilaterally, no wheezing GI: Soft, nontender, nondistended, no rebound, no guarding MSK back: No midline tenderness, bilateral thoracic paraspinal tenderness to palpation, full range of motion, pulses equal Skin: Warm, Dry, intact, no rashes Neuro: AO x3, CN II-XII grossly intact, moves all extremities Course Orders Ordered: Discontinued Medications Aspirin (Aspirin 81 Mg Chew Tab) 324 mg PO NOW ONE Stop: 09/20/24 21:40 Last Admin: 09/20/24 22:29 Dose: 324 mg Documented By: JANY Ketorolac Tromethamine (Ketorolac 30 Mg/Ml Vial) 15 mg IV NOW ONE Stop: 09/20/24 23:18 Last Admin: 09/20/24 23:36 Dose: 15 mg Documented By: JANY Vital Signs Vital signs: Vital Signs - 8 hr 09/20/24 21:29 09/20/24 22:21 09/20/24 22:22 Temperature 97.5 F L Pulse Rate 67 63 Respiratory Rate 16 24 Blood Pressure 129/59 L 120/77 Pulse Oximetry 100 98 Oxygen Delivery Method Room Air 09/20/24 22:22 09/20/24 22:30 09/20/24 22:30 Temperature Pulse Rate 62 64 Respiratory Rate 25 H 23 Blood Pressure 107/56 L Pulse Oximetry 98 97 Oxygen Delivery Method Room Air Room Air 09/20/24 23:00 09/20/24 23:00 Temperature Pulse Rate 62 Respiratory Rate 13 Blood Pressure 103/58 L Pulse Oximetry 94 Oxygen Delivery Method Room Air MDM - Chest Pain Differential Diagnosis Differential diagnosis: Likely atypical chest pain, costochondritis and chest pain Lab Data 09/20/24 21:55 09/20/24 21:55 Labs: Lab Results 09/20/24 Range/Units 21:55 WBC 5.5 (4.5-11.0) X10^3/uL RBC 4.06 (4.0-5.2) X10^6/uL Hgb 13.3 (12.0-16.0) g/dL Hct 39.1 (36-46) % MCV 96.2 (80-100) fL MCH 32.9 (26-34) PG MCHC 34.2 (30-36) % RDW 13.0 (11.6-14.8) % Plt Count 186 (150-400) X10^3/uL Neut % (Auto) 51.3 (50-75) % Lymph % (Auto) 37.1 (25-40) % Loup % (Auto) 7.7 (3-14) % Eos % (Auto) 2.9 (2-4) % Baso % (Auto) 1.0 (0-2) % Neut # (Auto) 2800 (3096-0789) /uL Lymph # (Auto) 2000 (3167-9181) /uL Loup # (Auto) 400 (0-900) /uL Eos # (Auto) 200 (0-450) /uL Baso # (Auto) 100 (0-100) /uL PT 12.0 (9.4-12.5) SECONDS INR 1.1 (0.9-1.3) APTT 31 (25.1-36.5) SECONDS D-Dimer 371 (<500) ng/ml Sodium 137 (137-145) mmol/L Potassium 3.6 (3.4-5.1) mmol/L Chloride 110 H (98-107) mmol/L Carbon Dioxide 16 L (22-32) mmol/L BUN 19 H (7-17) mg/dL Creatinine 0.79 (0.52-1.04) mg/dL Estimated GFR > 60 (>60) mL/min BUN/Creatinine Ratio 24.1 H (6-22) Glucose 138 H (80-110) mg/dL Calcium 8.9 (8.4-10.2) mg/dL Magnesium 2.0 (1.6-2.3) mg/dL Total Bilirubin 0.5 (0.2-1.3) mg/dL AST 141 H (14-36) IU/L ALT 69 H (<35) IU/L Alkaline Phosphatase 41 (38-126) U/L Total Creatine Kinase 66 (30-135) U/L Troponin I < 0.012 (0.01-0.034) ng/mL NT-Pro-B Natriuret Pep 98 (<125) pg/mL Total Protein 6.4 (6.3-8.2) g/dL Albumin 3.5 (3.5-5.0) g/dL Globulin 2.9 (1.7-4.1) g/dL Albumin/Globulin Ratio 1.2 (1.0-2.8) Lipase 80 (23-300) U/L Imaging Data Chest x-ray: Radiologist's Impression: PROCEDURE: XR CHEST 1V INDICATIONS: chest pain TECHNIQUE: One view of the chest was acquired. COMPARISON: [facility], CR, XR CHEST 1V, 12/21/2019, 20:33. FINDINGS: Surgical changes and devices: None. Lungs and pleura: Lungs are clear. No pleural effusions or pneumothorax. Mediastinum: Mediastinal contours appear normal. Heart size is normal. Bones and chest wall: No suspicious bony lesions. Overlying soft tissues appear unremarkable. IMPRESSION: No acute cardiopulmonary abnormality is seen. Approved by: Sonido Menjivar M.D. on 09/20/2024 at 21:54 ECG Data Interpretation: Sinus bradycardia at 59 beats per minute. Normal MI. No ST T wave changes, no STEMI MDM Narrative Medical decision making narrative: Well-appearing patient with back pain and chest pain. Back pain is reproducible and based on patient's history and description of symptoms the seemed to be 2 separate issues. Overall I have low suspicion for ACS or dissection at this time. EKG normal sinus rhythm without concerning findings. Laboratory work, chest x-ray, troponin, D-dimer ordered for assessment. Toradol ordered for pain management. Laboratory work is reviewed, no significant abnormalities identified. Patient has mild elevation in liver enzymes, which appears to go as far back as 2019. Troponin undetectable, D-dimer <500ng/ml. Since symptoms began and have been present for at least 2 hours without elevation in troponin or elevated dimer with normal vitals ACS or dissection seem to be low probability. Patient reassessed, hemodynamically stable, reports improvement in pain after receiving toradol. Patient and informed of all lab and imaging findings. Patient reassured. She was counseled to discuss ED visit with her PCP at her scheduled visit tomorrow. ED return precautions discussed. Discharge Plan Departure Patient Disposition: Home Clinical Impression: Chest pain, Back pain Instructions: DI for Chest Pain, DI for Thoracic Back Pain Activity Restrictions/Additional Instructions: Your blood work, EKG, and chest x-ray today were all normal. There do not appear to be any signs of heart attack or blood clot at this time. Continue to take Tylenol and ibuprofen as needed for discomfort. Follow up tomorrow as scheduled with your primary care doctor. If you have any new or worsening symptoms please return to the emergency department for repeat evaluation. Referrals: Abida Moctezuma MD [Primary Care Provider] - Stand Alone Forms: Patient Portal/API/Survey
[2024-09-20 23:27] LABS: D Dimer 371 ng/ml (<500)
[2024-09-20 23:30] VITALS: BP 109/61; PULSE 63; RESP 17; O2SAT 96
[2024-09-20] MEDS: KETOROLAC 30 MG/ML VIAL 15 MG IV (23:36)
[2024-09-21] VITALS: BP 94/53; PULSE 64; RESP 14; O2SAT 93
== END 2024-09-21 00:24 | disposition home or self-care (01) ==
PROVIDERS: Emergency Provider Emergency Medicine; Family Provider Family Medicine; PCP Family Medicine
DX: R07.9 Chest pain, unspecified (principal); M54.6 Pain in thoracic spine; R00.1 Bradycardia, unspecified; R74.8 Abnormal levels of other serum enzymes
CPT/HCPCS: 36415; 71045; 80053; 82550; 83690; 83735; 83880; 84484; 85025; 85379; 85610; 85730; 93005; 93010; 96374; 99284; J1885

== ENCOUNTER → 2025-10-18 09:07 | Outpatient (CLI) | payer OTHER, SELFPAY ==
--- NOTE | 2025-10-18 09:09 | DI.MG.S_ITS ---
MM screening mammo BI: 10/18/2025. BI-RADS: 1 CLINICAL: 65-year old female for bilateral screening mammogram. Tyrer-Cuzick lifetime risk of 5.4%. No personal or first-degree family history of breast cancer. PRIOR EXAMS 09/02/2023, 07/22/2022, 11/19/2015. MAMMOGRAPHY TECHNIQUE: 2D and 3D (tomosynthesis) digital mammographic views obtained, with additional images as needed for full coverage. Current study was also evaluated with a Computer Aided Detection (CAD) system. DENSITY B. There are scattered areas of fibroglandular density. MAMMOGRAPHY FINDINGS Bilateral: No suspicious mass, asymmetry, microcalcification, or other abnormality seen. IMPRESSION: * No evidence of malignancy. RECOMMENDATIONS Bilateral * Annual screening mammography. OVERALL ASSESSMENT CATEGORY BI-RADS-1: Negative. The [employer] recommends annual screening mammography beginning at age 40 for women with average risk of breast cancer. ELECTRONICALLY SIGNED: Sarah Garibay M.D. on 10/18/2025 at 03:02:15 PM PT Interpreting Station ID: [id number]
== END ==
PROVIDERS: Family Provider Family Medicine; PCP Family Medicine; Referring Provider Family Medicine; Visit Provider Family Medicine
DX: Z12.31 Encounter for screening mammogram for malignant neoplasm of breast (principal)
CPT/HCPCS: 77063; 77067